=== PATIENT | female | born 1960 | race Caucasian/White ===

== ENCOUNTER 2023-06-22 06:38 | Observation (INO) | payer MEDICARE ==
[2023-06-15 14:11] VITALS: BP 113/64; PULSE 92; RESP 18; TEMP 98; O2SAT 94
[2023-06-15 15:22] LABS: BASOPHIL % 0.7 % (0.0-0.2); EOSINOPHIL # 0.2 10^3/uL (0.0-0.2); EOSINOPHIL % 2.7 % (0.0-5.0); HEMATOCRIT(ML) 39.7 % (36.0-46.0); HEMOGLOBIN 13.6 g/dL (12.0-15.0); LYMPHOCYTES % 23.5 % (24.0-44.0); MEAN CORP HGB 31.5 pg (26-34); MEAN CORP HGB CONCENTRATION 34.3 g/dL (33-36.5); MEAN CORP VOLUME 91.9 fL (78-100); MONOCYTES # 0.5 10^3/uL (0.3-0.8); MONOCYTES % 8.2 % (5.0-12.0); NEUTROPHIL # 3.9 10^3/uL (1.8-7.7); NEUTROPHILS % 64.7 % (41.0-85.0); PLATELET COUNT 199 10^3/uL (150-400); RED BLOOD CELL 4.32 10^6/uL (4.00-5.20); RED CELL DISTRIBUTION WIDTH 11.8 % (11.5-14.5)
[2023-06-15 15:29] LABS: BILIRUBIN,URINE NEGATIVE (NEGATIVE); LEUKOCYTE ESTERASE ,URINE NEGATIVE (NEGATIVE); NITRATE,URINE NEGATIVE (NEGATIVE); UROBILINOGEN,URINE 0.2 E.U./dL (0.2)
[2023-06-15 15:31] LABS: +ADD MANUAL DIFF(NO CHRG) NO; APPEARANCE,URINE CLEAR; UA COLOR YELLOW
[2023-06-15 15:36] LABS: ALBUMIN(ML) 3.8 g/dL (3.4-5.0); ALBUMIN/GLOBULIN RATIO 0.974; ANION GAP 15.3; BUN/CREATININE RATIO 13.18 (10.0-20.0); CARBON DIOXIDE 25.6 mmol/L (20.0-32); CREATININE SERUM 0.91 mg/dL (0.59-1.40); EST GFR, NON-AA 62.4 (>/=60); POTASSIUM 3.9 mmol/L (3.6-5.2)
[2023-06-22] VITALS (21 sets, daily range): BP systolic 84–135; BP diastolic 45–77; PULSE 72–95; RESP 16–18; TEMP 97–99.6; O2SAT 91–98
[~2023-06-22] VITALS: Ht 167.6 cm; Wt 89.8 kg
[~2023-06-22 06:38] MED LIST: ANCEF IV ONE; ANCEF ONE; ASPI-667 PO; CARV6.25 PO; CELE100C PO; CLOP-28 PO; EMPA10TA PO; NS 100ML 100 ML IV ONE; ROSU40TA PO; SACU1TAB4 PO; TRAZ-163 PO
[2023-06-22] MEDS ORDERED: DECADRON ONE (06:47)
[2023-06-22] MEDS ORDERED: ASCO500C10 PO (06:55)
[2023-06-22] MEDS ORDERED: VITA25006 PO (06:55)
[2023-06-22] MEDS ORDERED: BIOT10TA PO (06:55)
[2023-06-22] MEDS ORDERED: UBID100C23 PO (06:55)
[2023-06-22] MEDS ORDERED: VITA1TAB19 PO (06:55)
[2023-06-22] MEDS: LACTATED RINGERS 1,000 ML IV ONE (07:00)
[2023-06-22] MEDS: DECADRON IV ONE (07:10)
[2023-06-22] MEDS: OFIRMEV 1000 MG/100 ML IV ONE (07:13)
[2023-06-22] MEDS: ULTRAM PO ONE (07:13)
[2023-06-22] MEDS: BACTROBAN OINTMENT TP ONE (07:14)
[2023-06-22] MEDS: NEURONTIN PO SCH (07:14)
[2023-06-22] MEDS: CELEBREX PO ONE (07:16)
[2023-06-22] MEDS ORDERED: NS 3000ML IRR IR ONE (07:17)
[2023-06-22] MEDS ORDERED: WATER ONE (07:17)
[2023-06-22] MEDS ORDERED: NS 250ML 250 ML ONE (07:17)
[2023-06-22] MEDS ORDERED: SODIUM CHLORIDE IRR BOTTLE IR ONE (07:17)
[2023-06-22] MEDS ORDERED: VERSED ONE (07:30)
[2023-06-22] MEDS ORDERED: SENSORCAINE-MPF 0.25% VIAL ONE (07:30)
[2023-06-22] MEDS ORDERED: EXPAREL 266 MG/20 ML VIAL IJ ONE (07:30)
[2023-06-22] MEDS ORDERED: DIPRIVAN 100 ML IV ONE (07:46)
[2023-06-22] MEDS ORDERED: ZOFRAN ONE (07:46)
[2023-06-22] MEDS ORDERED: TRANEXAMIC 1,000 MG/100ML-NACL 200 ML IV ONE (07:47)
[2023-06-22] MEDS: ANCEF IV ONE (08:13)
[2023-06-22] MEDS ORDERED: DILAUDID ONE (10:46)
[2023-06-22] MEDS: DILAUDID IV ONE ×2 (10:55→11:00)
[2023-06-22] MEDS: ASPIRIN PO SCH (11:00)
[2023-06-22] MEDS ORDERED: ZOFRAN IV PRN (11:00)
[2023-06-22] MEDS ORDERED: LACTATED RINGERS 1,000 ML IV SCH (11:00)
[2023-06-22] MEDS ORDERED: ULTRAM PO PRN ×2 (11:00)
[2023-06-22] MEDS ORDERED: CEPACOL SORE THROAT LOZENGE MM PRN (11:00)
[2023-06-22] MEDS: TYLENOL PO SCH (12:00)
[2023-06-22] MEDS ORDERED: ANCEF 2 GM/D5W 50ML IV SCH (14:00)
[2023-06-22] MEDS: ANCEF 2 GM/D5W 50ML 50 ML IV SCH (15:55)
[2023-06-22 19:16] LABS: HEMATOCRIT(ML) 31.9 % (36.0-46.0); MEAN CORP HGB 32.1 pg (26-34); MEAN CORP HGB CONCENTRATION 34.5 g/dL (33-36.5); RED BLOOD CELL 3.43 10^6/uL (4.00-5.20); RED CELL DISTRIBUTION WIDTH 11.8 % (11.5-14.5); WHITE BLOOD CELL 8.1 10^3/uL (4.5-11.0)
[2023-06-22] MEDS: COREG PO SCH (20:26)
[2023-06-22] MEDS: CRESTOR PO SCH (20:27)
[2023-06-22] MEDS: TRAZODONE HCL PO SCH (20:27)
[2023-06-22] MEDS: ENTRESTO 97 MG-103 MG TABLET PO SCH (20:49)
[2023-06-22] MEDS: TORADOL IV PRN (21:35)
[2023-06-23 03:26] VITALS: BP 140/83; PULSE 87; RESP 18; TEMP 97.5; O2SAT 95
[2023-06-23 07:15] VITALS: BP 122/76; PULSE 85; RESP 18; TEMP 97.1; O2SAT 93
[2023-06-23 07:32] LABS: HEMATOCRIT(ML) 29.7 % (36.0-46.0); HEMOGLOBIN 9.9 g/dL (12.0-15.0); MEAN CORP HGB 31.5 pg (26-34); MEAN CORP HGB CONCENTRATION 33.3 g/dL (33-36.5); MEAN CORP VOLUME 94.6 fL (78-100); RED BLOOD CELL 3.14 10^6/uL (4.00-5.20); RED CELL DISTRIBUTION WIDTH 11.7 % (11.5-14.5); WHITE BLOOD CELL 7.6 10^3/uL (4.5-11.0)
[2023-06-23] MEDS: VITAMIN C PO SCH (09:22)
[2023-06-23] MEDS: COLACE PO SCH (09:22)
[2023-06-23] MEDS: JARDIANCE PO SCH (09:22)
[2023-06-23] MEDS ORDERED: ANCEF 2 GM/D5W 50ML 50 ML IV ONE (09:39)
[2023-06-23] MEDS ORDERED: TRAM50TA PO (11:35)
[2023-06-23] MEDS: XARELTO PO SCH (12:30)
[2023-06-23 14:05] VITALS: BP 122/76; PULSE 85; RESP 18; TEMP 97.1; O2SAT 93
== END 2023-06-23 14:05 | disposition home or self-care (01) ==
LOC: SDC 06:38 → OBS 11:55
PROVIDERS: ADMIT Orthopaedic Surgery; ATTEND Orthopaedic Surgery
DX: M16.12 Unilateral primary osteoarthritis, left hip (principal); D62 Acute posthemorrhagic anemia; E78.5 Hyperlipidemia, unspecified; I25.5 Ischemic cardiomyopathy; I11.0 Hypertensive heart disease with heart failure; I50.9 Heart failure, unspecified; I25.10 Atherosclerotic heart disease of native coronary artery without angina pectoris; I25.2 Old myocardial infarction; Z79.82 Long term (current) use of aspirin; Z95.810 Presence of automatic (implantable) cardiac defibrillator; Z90.710 Acquired absence of both cervix and uterus; Z87.891 Personal history of nicotine dependence
CPT/HCPCS: 81003; 80053; 85025; 87070; 36415 ×3; 27130; 96365; 96366 ×2; 96375; 73502; 85027 ×2; 97116 ×2; 97530 ×2; 97162; G0378 ×3; C9290; J7050; J7120; A4217 ×2; A4649 ×2; C1776; J0690 ×2; J1170; J0131; J8499 ×2; J1100; J2405; J2250; J1885; J3490; A9150 ×2; 76000; 97163; G0379